=== PATIENT | female | born 1935 | race Caucasian/White ===

== ENCOUNTER 2017-03-08 18:12 | Inpatient (IN) | payer MEDICARE ==
[~2017-03-08] VITALS: Ht 162.6 cm; Wt 84.8 kg
[~2017-03-08 18:12] MED LIST: AMLODIPINE5 MG PO; BENICAR40 MG PO; BUDESONIDE3 MG/24 HR PO; CELEBREX200 MG OR; CEPHALEXIN500 MG OR; CYMBALTA60 MG PO; DARVOCET-N 100100 MG OR; PROZAC20 MG OR; TOPROL XL PO; VIT C & E OR; WARFARIN3 MG PO
--- NOTE | 2017-03-08 18:12 | NUR ---
PT TO ROOM 6 VIA EMS.
--- NOTE | 2017-03-08 18:51 | NUR ---
REPORT GIVEN TO PHIL INGRAM. CARE RELINQUISHED.
--- NOTE | 2017-03-08 18:57 | NUR ---
URINE SPECIMEN COLLECTED AFTER PONCE CATH PLACEMENT USING STERILE TECHNIQUE PT TOLEREATED WELL.
--- NOTE | 2017-03-08 19:00 | NUR ---
RECEIVED REPORT FROM HARISH VILLARREAL. IN ROOM INTRODUCED SELF TO PT.
[2017-03-08 19:04] LABS: URINE BILIRUBIN - DIPSTICK NEGATIVE (NEGATIVE); URINE BLOOD DIPSTICK NEGATIVE (NEGATIVE); URINE COLOR YELLOW; URINE GLUCOSE - DIPSTICK NEGATIVE (NEGATIVE); URINE KETONE NEGATIVE (NEGATIVE); URINE LEUK ESTERASE NEGATIVE (NEGATIVE); URINE NITRITE - DIPSTICK NEGATIVE (Negative); URINE PH 6.5 (4.5-8.0); URINE PROTEIN - DIPSTICK NEGATIVE (NEG-TRACE); URINE UROBILINOGEN - DIPSTICK 0.2 E.U./dL (0.2)
[2017-03-08 19:07] LABS: URINE CLARITY CLEAR
[2017-03-08] MEDS ORDERED: AMLODIPINE5 MG PO (19:13)
[2017-03-08] MEDS ORDERED: LOSARTAN POTASS50 MG PO (19:16)
[2017-03-08] MEDS ORDERED: CLONAZEPAM0.5 MG PO (19:17)
--- NOTE | 2017-03-08 20:00 | NUR ---
RESTING ON STRETCHER, SO AT BEDSIDE, NO C/O.
[2017-03-08 20:05] LABS: HEMATOCRIT 43.8 % (37.0-47.0); HEMOGLOBIN 13.8 g/dl (12.0-16.0); IMMATURE GRANULOCYTES 0.9 % (0.0-1.0); MEAN CELL VOLUME 90.5 fL CALC (80.0-100.0); MEAN CORPUSCULAR HGB 28.5 pG CALC (26.0-32.0); MEAN CORPUSCULAR HGB CONC 31.5 g/L CALC (32.0-36.0); NEUT# 3.88 thou/uL (2.00-7.15); RED BLOOD COUNT 4.84 mill/uL (4.20-5.60); RED CELL DISTRI WIDTH 13.3 % (11.5-15.5)
--- NOTE | 2017-03-08 20:17 | NUR ---
IV PAIN MED GIVEN PER MD ORDER.
[2017-03-08 20:36] LABS: ALBUMIN 4.3 g/dL (3.2-5.0); BILIRUBIN, TOTAL 0.6 mg/dL (0.0-1.4); CALCIUM 10.6 mg/dL (8.4-10.2); CREATININE 1.2 mg/dL (0.5-1.0); POTASSIUM 4.7 mmol/l (3.5-5.1); PROTHROMBIN TIME 10.7 SECONDS (9.0-12.5); TOTAL PROTEIN 7.9 g/dL (6.3-8.2)
--- NOTE | 2017-03-08 20:51 | NUR ---
MD IN ROOM TO DISCUSS CLINICAL FINDINGS WITH PT. AND MAKE HER AWARE OF ADMISSION.
--- NOTE | 2017-03-08 21:03 | NUR ---
pt. states her left hip pain is now decreased to a 4 on a scale of 1-10.
--- NOTE | 2017-03-08 21:39 | NUR ---
Admission Note Report Given to: LIBORIO KRISHNA Transported by: Wheelchair X Stretcher Transported with: X Nurse Transporter X Patent IV O2 X Plant Production Worker
--- NOTE | 2017-03-08 21:40 | NUR ---
PT. TAKEN TO MS VIA STRETCHER. NO C/O.
--- NOTE | 2017-03-08 21:45 | NUR ---
PT PRESENTED TO ROOM WITH ER STAFF. PT TRANSFERED TO BED; VITALS OBTAINED. PT ORIENTED TO ROOM AND CALL LIGHT SYSTEM. RESP EVEN AND UNLABORED. LUNGS CLEAR BILAT. NO DISTRESS NOTED. ABD SOFT WITH ACTIVE BOWEL SOUNDS. TELE IN PLACE. PEDAL PULSES PALPATED BILAT. PONCE PATENT; DRAINING YELLOW URINE. IV LAC PATENT, FLUSHED WITHOUT ANY DIFFICULTY. PT DENIES ANY PAIN OR DISCOMFORT AT THIS TIME. FREQUENT ROUNDS MADE. CALL LIGHT WITHIN REACH.
[2017-03-08 21:50] VITALS: BP 158/83
--- NOTE | 2017-03-08 23:19 | NUR ---
PT STATES PAIN; 8. DR GREENBERG, NEW ORDER RECIEVED.
--- NOTE | 2017-03-09 00:10 | NUR ---
PT STATES " I DON'T WANT TO WEAR CPAP TONIGHT, DONT SET IT UP". RESP EVEN AND UNLABORED. NO DISTRESS NOTED. IV PATENT. TELE IN PLACE. CALL LIGHT WITHIN REACH.
--- NOTE | 2017-03-09 04:29 | NUR ---
VS OBTAINED; PT O2 SAT 87. O2 APPLIED @ 2L; O2-92. PT REFUSED TO WEAR CPAP LAST NIGHT. PT DENIES ANY PAIN. INCENTIVE SPIROMETER EDUCATION; PT INSTRUCTED TO USE WHEN AWAKE. RESP EVEN AND UNLABORED. NO DISTRESS NOTED. CALL LIGHT WITHIN REACH .
[2017-03-09 05:10] VITALS: BP 137/62
[2017-03-09 05:56] LABS: HEMATOCRIT 40.4 % (37.0-47.0); HEMOGLOBIN 13.1 g/dl (12.0-16.0); IMMATURE GRANULOCYTES 0.5 % (0.0-1.0); MEAN CELL VOLUME 87.8 fL CALC (80.0-100.0); MEAN CORPUSCULAR HGB 28.5 pG CALC (26.0-32.0); MEAN CORPUSCULAR HGB CONC 32.4 g/L CALC (32.0-36.0); NEUT# 7.18 thou/uL (2.00-7.15); RED BLOOD COUNT 4.6 mill/uL (4.20-5.60); RED CELL DISTRI WIDTH 13.2 % (11.5-15.5)
[2017-03-09 06:08] LABS: CALCIUM 9.6 mg/dL (8.4-10.2); CREATININE 1.2 mg/dL (0.5-1.0); POTASSIUM 4.6 mmol/l (3.5-5.1)
--- NOTE | 2017-03-09 07:00 | NUR ---
PT IN SUPINE POSITION RESTING WITH EYES CLOSE; AROUSED EASILY TO VERBAL STIMULI; NO COMPLAINTS VOICED; IVF INFUSING WITHOUT DIFFICULTY, NO REDNESS OR EDEMA AT #20 LAC SITE; PONCE DRAINING CLEAR YELLOW URINE TO BEDSIDE DRAIN; DISCUSS WITH PT NPO STATUS FOR POSSIBLE SX TODAY; PT VERBALIZE UNDERSTANDING OF SAME; CALL TRACY WITHIN REACH; WILL CONTINUE TO MONITOR.
[2017-03-09 09:16] VITALS: BP 140/69
--- NOTE | 2017-03-09 10:41 | NUR ---
PT IN SUPINE POSITION; VISITING WITH SPOUSE; NO COMPLAINTS VOICED; IVF INFUSING WITHOUT DIFFICULTY; CALL TRACY WITHIN REACH; WILL CONTINUE TO MONITOR.
[2017-03-09 11:00] VITALS: BP 156/82
--- NOTE | 2017-03-09 13:00 | NUR ---
PT TOLERATE DIET WELL; NO COMPLAINTS OF PAIN VOICED AT THIS TIME; VISITORS IN WITH PT; CALL TRACY WITHIN REACH; WILL CONTINUE TO MONITOR.
[2017-03-09] MEDS ORDERED: BUSPIRONE5 MG PO (13:43)
[2017-03-09] MEDS ORDERED: XALATAN 0.005%2.5 ML OU (14:11)
[2017-03-09] MEDS ORDERED: CALCIUM 6001 TAB PO (14:19)
[2017-03-09] MEDS ORDERED: XYZAL ALLERGY 245 MG PO (14:22)
[2017-03-09] MEDS ORDERED: MAGNESIUM 250 M1 TAB PO (14:23)
[2017-03-09] MEDS ORDERED: VITAMIN D3400 UNI2 (14:26)
[2017-03-09] MEDS ORDERED: VITAMIN D-32000 UNI1 PO (14:34)
[2017-03-09] MEDS ORDERED: PRESERVISION AREDS 2 PO (14:35)
[2017-03-09] MEDS ORDERED: TYLENOL 500MG TAB PO (14:36)
[2017-03-09 15:20] VITALS: BP 147/67
--- NOTE | 2017-03-09 16:29 | NUR ---
DISCUSSED WITH PT THE NEED FOR TX TO [facility] IN THE AM AND NPO AFTER MIDNIGHT; PT VERBALIZE UNDERSTANDING OF SAME; CALL TRACY WITHIN REACH; WILL CONTINUE TO MONITOR.
--- NOTE | 2017-03-09 17:23 | NUR ---
Talked to patient today about her medical problems and medications. Patient stated not experience any side effects. Patient did not have any other questions to pharmacy at this time.
--- NOTE | 2017-03-09 18:00 | NUR ---
PT CONFUSED; ATTEMPTING TO GET OOB; STATES IT IS TIME TO GO HOME; PT REORIENTED TO TIME AND PLACE AND NEED FOR SURGERY IN AM; TEMP 102.1 AT THIS TIME; AVI SNOW NOTIFIED; ORDERS RECEIVED; BED ALARM IN PLACE FOR SAFETY; CALL TRACY WITHIN REACH; WILL CONTINUE TO MONITOR.
[2017-03-09 18:30] VITALS: BP 144/68
--- NOTE | 2017-03-09 18:40 | NUR ---
MODERATE INFILRATE TO LAC IV SITE; SITE REMOVED CATH TIP INTACT, PRESSURE DRSG APPLIED; 2 UNSUCCESSFUL ATTEMPTS AT IV ACCESS BY THIS NURSE; ONCOMING NURSE MADE AWARE
--- NOTE | 2017-03-09 19:30 | NUR ---
PATIENT JUST FINISHED SHOWER SITTING ON THE SIDE OF THE BED. NEW IV SITE STARTED TO RIGHT FOREARM-#22GAUGE WITH GOOD BLOOD RETURN. IV VANCO FINISHING AT THIS TIME. AT BEDSIDE. PATIENT EDUCATED REGUARDING INFECTION ENTEROCOCCUS FAECALIS. ENCOURAGED PO FLUIDS. SAFETY PRECAUTIONS REINFORCED. CALL LIGHT IN REACH. WILL CONT TO MONITOR.
--- NOTE | 2017-03-09 19:30 | NUR ---
PATIENT RESTING IN BED AT THIS TIME WITH O2 VIA NASAL CANNULA IN PLACE AND HOB ELEVATED. PATIENT IS AWAKE ALERT AND ORIENTED TO PERSON AND PLACE ONLY. SLIGHT CONFUSION NOTED. TEMP 102.2. PONEC CATH PATENT AND DRAINING CLEAR YELLOW URINE. URINE SPEC FOR C&S OBTAINED. LAB UNABLE TO DRAW BLOOD CULTURES. NSG NOTIFIED-WILL BE UP TO ATTEMPT IV AND LAB DRAW SHORTLY. CALL LIGHT IN REACH. WILL CONT TO MONITOR.
--- NOTE | 2017-03-09 20:30 | NUR ---
BLOOD CULTURES OBTAINED AND SENT TO LAB. IV TO RIGHT WRIST-#22 GAUGE BY BECKY VILLARREAL-NSG NATURAL RESOURCE SPECIALIST PLACED. MAXIPIME GIVEN ORDERED. TYLENOL 650 MG PO GIVEN FOR TEMP. IVF NS AT 80CC/HR. SITE APPEARS HEALTHY AT THIS TIME. PATIENT MEDICATED FOR LEFT HIP PAIN-7/10 ON PAIN SCALE WITH MORPHINE 4MG IVP ORDERED FOR PAIN. ENCOURAGED PATIENT TO USE IS Q1H WHILE AWAKE. PATIENT WAS ABLE TO DEMONSTRATE USE WITH INSTRUCTION. SAFETY PRECAUTIONS REINFORCED.CALL LIGHT IN REACH. WILL CONT TO MONITOR.
[2017-03-09 20:51] LABS: URINE BILIRUBIN - DIPSTICK NEGATIVE (NEGATIVE); URINE BLOOD DIPSTICK TRACE-INTACT (NEGATIVE); URINE COLOR YELLOW; URINE GLUCOSE - DIPSTICK NEGATIVE (NEGATIVE); URINE KETONE NEGATIVE (NEGATIVE); URINE LEUK ESTERASE NEGATIVE (NEGATIVE); URINE NITRITE - DIPSTICK NEGATIVE (Negative); URINE PH 5.5 (4.5-8.0); URINE PROTEIN - DIPSTICK NEGATIVE (NEG-TRACE); URINE UROBILINOGEN - DIPSTICK 0.2 E.U./dL (0.2)
[2017-03-09 20:52] LABS: URINE CLARITY CLEAR
--- NOTE | 2017-03-09 23:00 | NUR ---
RESTING IN BED AT THIS TIME WITH O2 VIA NASAL CANNULA IN PLACE. IVF PATENT AND INFUSING AT 80CC/HR ORDERED. PONCE PATENT AND DRAINING CLEAR YELLOW URINE. CALL LIGHT IN REACH. WILL CONT TO MONITOR.
[2017-03-10 00:05] VITALS: BP 134/60
--- NOTE | 2017-03-10 02:00 | NUR ---
PATIENT RESTING IN BED FOUND WITH O2 OFF-REPLACE O2 VIA NASAL CANNULA. PATIENT ATTEMPTING TO PULL AT PONCE CATH. PATIENT IS ORIENTED TO PERSON AND PLACE ONLY. RT CALLED TO PLACE C-PAP ON PATIENT. O2 SAT IS 94-95% WITH C-PAP IN PLACE WITH O2. PATIENT IS NPO FOR OR THIS MORNING AT [facility] WITH DR. ESTES. CALL LIGHT IN REACH. WILL CONT TO MONITOR.
--- NOTE | 2017-03-10 03:01 | NUR ---
PATIENT ATTEMPTING TO GET OOB. ASSISTED BACK INTO THE BED. FOUND WITH C-PAP OFF-REPLACED BACK ON PATIENT AND REPOSITIONED. BED ALARM PLACED FOR PATIENT SAFETY. IVF PATENT AT 80CC/HR VIA RIGHT WRIST. SITE APPEARS HEALTHY. PONCE PATENT AND DRAINING YELLOW URINE. CALL LIGHT IN REACH. WILL CONT TO MONITOR.
--- NOTE | 2017-03-10 04:40 | NUR ---
PATIENT WITH TEMP 101.4-PULLING AT PONCE CATH TUBING AND IV TUBING. PATIENT IS ORIENTED TO PERSON ONLY. MEDICATED WITH TYLENOL 650MG PO WITH SIP OF H2O AND WITH MORPHINE FOR PAIN. BED ALARM IN PLACE FOR PATIENT SAFETY. C-PAP IN PLACE. CALL LIGHT IN REACH. WILL CONT TO MONITOR.
[2017-03-10 05:00] VITALS: BP 165/60
--- NOTE | 2017-03-10 05:22 | NUR ---
TEMP 100.0 AT THIS TIME. PATIENT IS RESTING QUIETLY AT THIS TIME. C-PAP REMAINS IN PLACE. PONCE DRAINING YELLOW URINE. IVF PATETN AT 80CC/HR. REMAINS NPO FOR OR TODAY. BED ALARM IN PLACE FOR PATIENT SAFETY. CALL LIGHT IN REACH. WILL CONT TO MONITOR.
--- NOTE | 2017-03-10 05:41 | NUR ---
PATIENT RESTING WITH C-PAP IN PLACE. O2 SAT IS 93% AT THIS TIME WITH HR-61 LESS RESTLESS. BED ALARM IN PLACE FOR PATIENT SAFETY. CALL LIGHT IN REACH. WILL CONT TO MONITOR.
[2017-03-10 07:15] VITALS: BP 130/62
[2017-03-10 07:52] LABS: HEMATOCRIT 36.6 % (37.0-47.0); HEMOGLOBIN 11.6 g/dl (12.0-16.0); IMMATURE GRANULOCYTES 0.6 % (0.0-1.0); MEAN CELL VOLUME 88.6 fL CALC (80.0-100.0); MEAN CORPUSCULAR HGB 28.1 pG CALC (26.0-32.0); MEAN CORPUSCULAR HGB CONC 31.7 g/L CALC (32.0-36.0); NEUT# 7.19 thou/uL (2.00-7.15); RED BLOOD COUNT 4.13 mill/uL (4.20-5.60); RED CELL DISTRI WIDTH 13.2 % (11.5-15.5)
[2017-03-10 08:24] LABS: ANION GAP 12 (6-22 (CALC)); BUN 13 mg/dL (8-23); BUN/CREATININE RATIO 15 (12-20 (CALC)); CARBON DIOXIDE 20 mmol/l (22-30); CHLORIDE 109 mmol/l (95-108); CREATININE 0.9 mg/dL (0.5-1.0); GFR 60 ML/MIN (>=60 (CALC)); GFR FOR AFR.AMER. > 60 ML/MIN (>=60 (CALC)); GLUCOSE 108 mg/dL (82-115); MAGNESIUM 1.8 mg/dL (1.6-2.3); POTASSIUM 4.2 mmol/l (3.5-5.1); SODIUM 137 mmol/l (137-146)
[2017-03-10 08:40] VITALS: BP 120/52
[2017-03-10 08:46] VITALS: BP 120/52
== END 2017-03-10 09:52 | disposition short-term general hospital (02) | DRG 536 ==
LOC: ED 18:12 → ED-I 20:20 → ED 21:11 → MS2 21:12
PROVIDERS: Emergency Medicine; Nurse Practitioner Family; ADMIT Internal Medicine; ATTEND Internal Medicine
PROC: 0T9B70Z Drainage of Bladder with Drainage Device, Via Natural or Artificial Opening (ICD-10-PCS; principal; 2017-03-08)
DX: S72.002A Fracture of unspecified part of neck of left femur, initial encounter for closed fracture (principal); D68.2 Hereditary deficiency of other clotting factors; N18.3 Chronic kidney disease, stage 3 (moderate); R50.9 Fever, unspecified; I12.9 Hypertensive chronic kidney disease with stage 1 through stage 4 chronic kidney disease, or unspecified chronic kidney disease; G25.81 Restless legs syndrome; G47.33 Obstructive sleep apnea (adult) (pediatric); F41.8 Other specified anxiety disorders; W01.190A Fall on same level from slipping, tripping and stumbling with subsequent striking against furniture, initial encounter; Y92.009 Unspecified place in unspecified non-institutional (private) residence as the place of occurrence of the external cause; Z86.718 Personal history of other venous thrombosis and embolism; Z87.891 Personal history of nicotine dependence
CPT/HCPCS: J0692

== ENCOUNTER 2017-03-25 02:40 | Inpatient (IN) | payer MEDICARE ==
[2017-03-25] VITALS (11 sets, daily range): BP systolic 132–154; BP diastolic 42–67
[~2017-03-25] VITALS: Ht 162.6 cm; Wt 84.0 kg
[~2017-03-25 02:40] MED LIST changes: +BUSPIRONE5 MG PO; +CALCIUM 6001 TAB PO; +CLONAZEPAM0.5 MG PO; +LOSARTAN POTASS50 MG PO; +MAGNESIUM 250 M1 TAB PO; +PRESERVISION AREDS 2 PO; +TYLENOL 500MG TAB PO; +VITAMIN D-32000 UNI1 PO; +VITAMIN D3400 UNI2; +XALATAN 0.005%2.5 ML OU; +XYZAL ALLERGY 245 MG PO
--- NOTE | 2017-03-25 02:46 | NUR ---
PT TO RM 9 VIA EMS.
--- NOTE | 2017-03-25 03:15 | NUR ---
PATIENT MEDICATED FOR PAIN ORDERED. AWARE OF PLANS FOR CONSCIOUS SEDATION.
[2017-03-25 03:24] LABS: HEMATOCRIT 36.9 % (37.0-47.0); HEMOGLOBIN 11.9 g/dl (12.0-16.0); MEAN CELL VOLUME 87.6 fL CALC (80.0-100.0); MEAN CORPUSCULAR HGB 28.3 pG CALC (26.0-32.0); MEAN CORPUSCULAR HGB CONC 32.2 g/L CALC (32.0-36.0); NEUT# 7.46 thou/uL (2.00-7.15); RED BLOOD COUNT 4.21 mill/uL (4.20-5.60)
[2017-03-25 03:31] LABS: CALCIUM 10.5 mg/dL (8.4-10.2); CREATININE 1.3 mg/dL (0.5-1.0); POTASSIUM 4.3 mmol/l (3.5-5.1)
--- NOTE | 2017-03-25 03:37 | NUR ---
MAGNUS YANEZ ARRIVES AT BEDSIDE.
--- NOTE | 2017-03-25 03:42 | NUR ---
PATIENT C/O TONGUE SWELLING. MD AT BEDSIDE FOR EVAL. ORDERS RECIEVED.
--- NOTE | 2017-03-25 03:47 | NUR ---
PATIENT MEDICATED ORDERED. WILL MONITOR FOR EFFECT.
--- NOTE | 2017-03-25 03:59 | NUR ---
PATIENT STATES TONGUE IS LESS SWOLLEN. TIME OUT PERFORMED. CONSCIOUS SEDATION STARTED.
--- NOTE | 2017-03-25 04:05 | NUR ---
CLOSED REDUCTION COMPLETED. PATIENT TOLERATED WELL. GOOD PULSES PRE AND POST APPLICATION. INFRASTRUCTURE ADMINISTRATOR REMAINS AT BEDSIDE FOR MONITORING.
--- NOTE | 2017-03-25 04:12 | NUR ---
BONDING SUPERVISOR MONITORING HAS COMPLETED. RN TO CONTINUE MONITORING.
--- NOTE | 2017-03-25 04:30 | NUR ---
PATIENT IS SEDATED, EASILY AROUSABLE AND TALKING. PATIENT SPEECH REMAINS THE SAME. PATIENT AND SPOUSE AWARE OF PLANS TO ADMIT.
--- NOTE | 2017-03-25 04:46 | NUR ---
REPORT CALLED TO ERENDIRA CAPONE. PATIENT READIED FOR TRANSPORT TO FLOOR VIA STRETCHER.
--- NOTE | 2017-03-25 04:55 | NUR ---
PT ARRIVED TO FLOOR WITH ER STAFF. PT X3 PERSON ASSIST TO BED. VITAL SIGNS AND WEIGHT OBTAINED. PT ORIENTED TO ROOM AND CALL LIGHT SYSTEEM. PT ALERT TO SPEECH, PT DROWSY. PT DENIES ANY PAIN. PT REPOSITIONED FOR COMFORT. RESP EVEN AND UNLABORED WITH O2 IN PLACE. ABD SOFT WITH HYPOACTIVE BOWEL SOUUNDS. TELE IN PLACE. PEDAL PULSES PALPATED BILAT. IV LFA FLUSHED WITHOUT DIFFICULTY. LEFT HIP INCISION COVERED WITH 9 STERI- STRIPS; CDI. BANDAID; CDI. NO REDNESS OR EDEMA NOTED. PT ENCOURAGED TO CALL FOR ASSISTANCE. FREQUENT ROUNDS MADE. CALL LIGHT WITHIN REACH.
--- NOTE | 2017-03-25 06:50 | NUR ---
NOTIFIED OF PT INTERNAL ROTATION OF LEFT HIP; NEW ORDERS RECIEVED.
--- NOTE | 2017-03-25 07:00 | NUR ---
RECEDIVED BEDSIDE REPORT FROM LIBORIO KRISHNA. RESTING IN SUPINE POSITION WITH EYES OPEN, LEFT LEG INTERNALLY ROTATED. PEDAL PULSES PRESENT, BILAT FEET WARM TO TOUCH. RESPS EVEN AND UNLABORED ON O2 VIA NC, TELE MONITOR IN PLACE. MEDICATED FOR PAIN AT THIS TIME BY LIBORIO KRISHNA. PLAN OF CARE DISCUSSED. SAFETY PRECAUTIONS REINFORCED. BED IN LOWEST POSITION WITH WHEELS LOCKED. CALL LIGHT WITHIN REACH. ENCOURAGED PT TO CALL FOR ANY NEEDS.
--- NOTE | 2017-03-25 07:10 | NUR ---
RADIOLOGY AT BEDSIDE.
--- NOTE | 2017-03-25 10:35 | NUR ---
TO ER ROOM 11 VIA BED ACCOMPANIED BY ANAMIKA HUMPHRIES AND MYSELF. NURSE TO NURSE REPORT TO FREDI VILLARREAL.
--- NOTE | 2017-03-25 10:58 | NUR ---
RECIEVED PATIENT TO ER ROOM 11 FOR CLOSED REDUCTION OF RIGHT HIP PER VERBAL ORDER DR. ESTES. IV X 1, MONITOR X 3, O2 2LNC INSITU.
--- NOTE | 2017-03-25 10:59 | NUR ---
TIME OUT PERFORMED, RESP THERAPY AT BEDSIDE.
--- NOTE | 2017-03-25 11:00 | NUR ---
ATTEMPTED TO CALL . NO ANSWER, UNABLE TO LEAVE VOICE MAIL MAIL BOX HAS NOT BEEN SET UP.
--- NOTE | 2017-03-25 11:10 | NUR ---
IN ROOM AWAITING RETURN FROM PROCEDURE.
--- NOTE | 2017-03-25 11:24 | NUR ---
CLOSED REDUCTION COMPLETED WITHOUT INCIDENT. PT AWAKE, DROWSY YET RESPONDS TO VERBAL COMMANDS AND LIGHT TACTILE STIMULATION. 16 FR PONCE PLACED X 1 ATTEMPT USING ASEPTIC TECHNIQUE PER DR. ADEN VERBAL ORDER. 5510 - REPORT TO NAZARIO VILLARREAL
--- NOTE | 2017-03-25 11:35 | NUR ---
FROM ER VIA BED ACCOMPANIED BY KAMI KRISHNA AND FREDI VILLARREAL. RESPS EVEN AND UNLABORED ON O2 VIA NC, TELE MONTOR IN PLACE. ABDUCTOR PILLOW BETWEEN BILAT KNEES. #22 LFA INFUSING WITHOUT DIFFICULTY, SITE APPEARS HEALTHY. PONCE PATENT, DRAINING CLEAR YELLOW URINE TO GRAVITY. AT BEDSIDE. ORIENTED TO ROOM AND CALL SYSTEM. SAFETY PRECAUTIONS REINFORCED. BED IN LOWEST POSITION WITH WHEELS LOCKED. CALL LIGHT WITHIN REACH. WILL CONTINUE TO MONITOR.
--- NOTE | 2017-03-25 11:35 | NUR ---
TRANSPORTED TO ROOM 261, BEDSIDE REPORT TO NAZARIO WITH RN TO RN HANDOFF
--- NOTE | 2017-03-25 14:39 | NUR ---
RESTING IN BED WITH EYES CLOSED, AWAKENS EASILY. RESPS EVEN AND UNLABORED ON O2 VIA NC, TELE MONITOR IN PLACE. ABDUCTOR PILLOW IN BLACE BETWEEN BILAT KNEES. PONCE, PATENT, DRAINING CLEAR YELLOW URINE TO GRAVITY. #22 LFA INFUSING WITHOUT DIFFICULTY, SITE APPEARS HEALTHY. SCD TO RIGHT LOWER EXTREMITY. VOICES NO NEEDS AT THIS TIME. WILL CONTINUE TO MONITOR.
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
--- NOTE | 2017-03-25 19:10 | NUR ---
REPORT RECEIVED FROM PHIL ROSENBERG;PT APPEARS TO BE SLEEPING IN SUPINE POSITION;NO S/S OF DISTRESS NOTED;RESPIRATIONS EVEN AND UNLABORED ON RA;BED ALARM ON FOR PT SAFETY;CALL LIGHT IN REACH;WILL CONTINUE TO MONITOR
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
--- NOTE | 2017-03-26 01:00 | NUR ---
PT APPEARS TO BE SLEEPING IN SUPINE POSITION WITH ABDUCTOR WEDGE IN PLACE;RESPIRATIONS EVEN AND UNLABORED ON RA;NO S/S OF DISTRESS NOTED;IV FLUIDS INFUSING WELL TO RIGHT HAND;TELE MONITOR AND SCD NOTED;BED ALARM ON FOR PT SAFETY;BED IN THE LOWEST POSITION WITH CALL LIGHT IN REACH;WILL CONTINUE TO MONITOR
[2017-03-26 05:09] VITALS: BP 160/69
--- NOTE | 2017-03-26 05:10 | NUR ---
PT APPEARS TO BE SLEEPING IN SUPINE POSITION WITH BED ALARM ON;WOKE PT TO ADMINISTER SCHEDULED MEDICATION AND OBTAIN VS;PONCE CATHETER PATENT DRAINING TO GRAVITY,UA OBTAINED;IV FLUIDS INFUSING WELL TO RIGHT HAND;TELE MONITOR IN PLACE;ABDUCTOR WEDGE NOTED;PT DENIES ANY NEEDS AT THIS TIME,DROWSY;CALL LIGHT IN REACH;WILL CONTINUE TO MONITOR
[2017-03-26 05:59] LABS: URINE BILIRUBIN - DIPSTICK NEGATIVE (NEGATIVE); URINE BLOOD DIPSTICK TRACE-INTACT (NEGATIVE); URINE COLOR YELLOW; URINE GLUCOSE - DIPSTICK NEGATIVE (NEGATIVE); URINE KETONE NEGATIVE (NEGATIVE); URINE NITRITE - DIPSTICK NEGATIVE (Negative); URINE PROTEIN - DIPSTICK NEGATIVE (NEG-TRACE); URINE SPECIFIC GRAVITY 1.025; URINE UROBILINOGEN - DIPSTICK 0.2 E.U./dL (0.2)
[2017-03-26 06:00] LABS: URINE CLARITY CLEAR; URINE LEUK ESTERASE SMALL (NEGATIVE)
[2017-03-26 06:12] LABS: URINE RBC 0-2 RBC/hpf (0-5)
[2017-03-26 06:13] LABS: URINE BACTERIA RARE hpf; URINE FINE GRAN CAST FEW lpf; URINE SQUAMOUS EPITHELIAL CELL RARE EPI/hpf (0-FEW)
--- NOTE | 2017-03-26 07:00 | NUR ---
RECEIVED BEDSIDE REPORT FROM ELLIE KRISHNA. ATTEMPTING TO GET OUT OF BED "I FEEL LIKE I HAVE DIARRHEA. I HAVE TO GO TO BATHROOM." REORIENTED PT TO TIME AND PLACE, ENCOURAGED TO REMAIN IN BED, USE CALL LIGHT, KEEP ABDUCTOR PILLOW BETWEEN BILAT KNEES. AT BEDSIDE. BEDPAN PROVIDED. PLAN OF CARE DISCUSSED. SAFETY PRECAUTIONS REINFORCED. BED ALARM ON FOR SAFETY. BED IN LOWEST POSITION WITH WHEELS LOCKED. CALL LIGHT WITHIN REACH. WILL CONTINUE TO MONITOR.
[2017-03-26 07:15] VITALS: BP 160/68
--- NOTE | 2017-03-26 07:15 | NUR ---
INTRODUCED SELF TO PT. VITALS SIGNS ARE WITHIN NORMAL LIMITS. PT DENIES PAIN AT THIS TIME. BED IS IN LOWEST POSITION W/ UPPER RAILS UP AND BED ALARM ON. ASSISTED PT TO BEDPAN. SOME REDNESS NOTED TO LT HIP AREA NOTED. WEDGE IS IN PLACE BETWEEN LEGS. IS AT BEDSIDE.WILL CONTINUE TO MONITOR.
[2017-03-26 07:52] LABS: HEMATOCRIT 35.3 % (37.0-47.0); HEMOGLOBIN 11.2 g/dl (12.0-16.0); IMMATURE GRANULOCYTES 0.6 % (0.0-1.0); MEAN CELL VOLUME 89.1 fL CALC (80.0-100.0); MEAN CORPUSCULAR HGB 28.3 pG CALC (26.0-32.0); MEAN CORPUSCULAR HGB CONC 31.7 g/L CALC (32.0-36.0); NEUT# 10.22 thou/uL (2.00-7.15); RED BLOOD COUNT 3.96 mill/uL (4.20-5.60); RED CELL DISTRI WIDTH 14.1 % (11.5-15.5)
--- NOTE | 2017-03-26 08:30 | NUR ---
IN TO ASSESS PT AT THIS TIME. PT A&O X 2. LUNGS ARE CLEAR BILATERALLY AND RESPIRATIONS ARE EVEN AND UNLABORED. PT DENIES PAIN AT THIS TIME. 9 STERI STRIPS NOTED TO LT HIP POST ORIF 2 WEEKS AGO. INCISIONLINE IS INTACT W/ NO REDNESS, BRUISING, SWELLING OR DRAINAGE. THERE IS FAINT PINKING AND BRUISING TO SURROUNDING HIP AREA. WEDGE READJUSTED BETWEEN PTS LEGS. PEDAL PULSES STRONG. REMAINS AT BEDSIDE. BED IS IN LOWEST POSITION WITH UPPER RAILS UP AND BED ALARM IS ON. SCD TO RLE. WILL CONTINUE TO MONITOR.
[2017-03-26 09:36] LABS: ANION GAP 14 (6-22 (CALC)); BUN 17 mg/dL (8-23); BUN/CREATININE RATIO 17 (12-20 (CALC)); CALCIUM 9.9 mg/dL (8.4-10.2); CARBON DIOXIDE 25 mmol/l (22-30); CHLORIDE 109 mmol/l (95-108); GFR 53 ML/MIN (>=60 (CALC)); GFR FOR AFR.AMER. > 60 ML/MIN (>=60 (CALC)); GLUCOSE 124 mg/dL (82-115); MAGNESIUM 1.9 mg/dL (1.6-2.3); POTASSIUM 4.3 mmol/l (3.5-5.1); SODIUM 143 mmol/l (137-146)
[2017-03-26 10:56] VITALS: BP 131/61
--- NOTE | 2017-03-26 12:20 | NUR ---
TOLERATED REGULAR DIET WITHOUT C/O ABD PAIN OR NAUSEA. PO FLUIDS OFFERED. DENIES PAIN OR DISCOMFORT. ABDUCTOR PILLOW BETWEEN BILAT KNEES. PONCE PATENT, DRAINING CLEAR YELLOW URINE TO GRAVITY, STRAP TO UPPER LEFT LEG. SCD TO RIGHT LOWER EXTREMITY. DENIES PAIN OR DISCOMFORT. CALL LIGHT WITHIN REACH. WILL CONTINUE TO MONITOR.
[2017-03-26 15:00] VITALS: BP 138/50
--- NOTE | 2017-03-26 16:03 | NUR ---
Discharge instructions given. Patient verbalizes understanding of same. Discharged in stable condition via Medical Transport to *Other with *Other. All belongings sent with pt. TO [facility]
--- NOTE | 2017-03-26 16:16 | NUR ---
NURSE TO NURSE REPORT CALLED TO CHUCK VILLARREAL AT [facility] [place].
== END 2017-03-26 15:59 | DRG 560 ==
LOC: ED 02:40 → ED-I 04:00 → ED 04:14 → MS2 04:15
PROVIDERS: Family Medicine; Nurse Practitioner Family; ADMIT Internal Medicine; ATTEND Internal Medicine
PROC: 0SWBXJZ Revision of Synthetic Substitute in Left Hip Joint, External Approach (ICD-10-PCS; principal; 2017-03-25)
PROC: 0SWBXJZ Revision of Synthetic Substitute in Left Hip Joint, External Approach (ICD-10-PCS; 2017-03-25)
PROC: 0T9B70Z Drainage of Bladder with Drainage Device, Via Natural or Artificial Opening (ICD-10-PCS; 2017-03-25)
DX: T84.021A Dislocation of internal left hip prosthesis, initial encounter (principal); N39.0 Urinary tract infection, site not specified; D68.2 Hereditary deficiency of other clotting factors; N18.3 Chronic kidney disease, stage 3 (moderate); D63.1 Anemia in chronic kidney disease; D62 Acute posthemorrhagic anemia; I12.9 Hypertensive chronic kidney disease with stage 1 through stage 4 chronic kidney disease, or unspecified chronic kidney disease; G47.33 Obstructive sleep apnea (adult) (pediatric); F41.8 Other specified anxiety disorders; G25.81 Restless legs syndrome; R41.0 Disorientation, unspecified; Y83.1 Surgical operation with implant of artificial internal device as the cause of abnormal reaction of the patient, or of later complication, without mention of misadventure at the time of the procedure; Y92.002 Bathroom of unspecified non-institutional (private) residence as the place of occurrence of the external cause; Z87.891 Personal history of nicotine dependence; Z86.718 Personal history of other venous thrombosis and embolism
CPT/HCPCS: J0692

== ENCOUNTER 2017-05-28 10:06 | Emergency (ER) | payer MEDICARE ==
[~2017-05-28] VITALS: Ht 162.6 cm; Wt 77.3 kg
[2017-05-28] MEDS ORDERED: VITAMIN D32000 UNIT PO (10:29)
[2017-05-28] MEDS ORDERED: PRESERVISION AREDS 2 PO (10:54)
[2017-05-28] MEDS ORDERED: WELLBUTRIN XL150 MG PO (10:55)
[2017-05-28] MEDS ORDERED: XGEVA SC (10:57)
[2017-05-28] MEDS ORDERED: CALCIUM600 M1 PO (10:58)
[2017-05-28] MEDS ORDERED: METAMUCIL0.52 G1 PO (10:58)
[2017-05-28 11:00] LABS: HEMATOCRIT 37.8 % (37.0-47.0); HEMOGLOBIN 12.3 g/dl (12.0-16.0); IMMATURE GRANULOCYTES 0.2 % (0.0-1.0); MEAN CELL VOLUME 91.5 fL CALC (80.0-100.0); MEAN CORPUSCULAR HGB 29.8 pG CALC (26.0-32.0); MEAN CORPUSCULAR HGB CONC 32.5 g/L CALC (32.0-36.0); NEUT# 2.85 thou/uL (2.00-7.15); RED BLOOD COUNT 4.13 mill/uL (4.20-5.60); RED CELL DISTRI WIDTH 17.3 % (11.5-15.5)
[2017-05-28 11:19] LABS: ACT PARTIAL THROMBO TIME 25.2 SECONDS (20.0-32.5); PROTHROMBIN TIME 10.7 SECONDS (9.0-12.5)
[2017-05-28 11:22] LABS: ALBUMIN 3.9 g/dL (3.2-5.0); BILIRUBIN, TOTAL 0.5 mg/dL (0.0-1.4); CREATININE 1.2 mg/dL (0.5-1.0); POTASSIUM 4.3 mmol/l (3.5-5.1); TOTAL PROTEIN 7.2 g/dL (6.3-8.2)
[2017-05-28 11:42] VITALS: BP 128/63
== END 2017-05-28 11:42 | disposition home or self-care (01) ==
LOC: ED 10:06
PROVIDERS: Family Medicine
DX: K62.5 Hemorrhage of anus and rectum (principal); I10 Essential (primary) hypertension; D68.51 Activated protein C resistance; G47.30 Sleep apnea, unspecified; Z86.718 Personal history of other venous thrombosis and embolism